=== PATIENT | female | born 1950 | race Caucasian/White ===

== ENCOUNTER 2017-03-31 14:49 | Observation (INO) ==
[2017-03-31] MEDS ORDERED: 0.9 % Sodium Chloride 1,000 ML IVC ONE (15:16)
[2017-03-31] MEDS ORDERED: Metoclopramide 10 MG/2 ML VIAL IVP ONE (15:19)
[2017-03-31] MEDS ORDERED: diazePAM 10 MG/2 ML SYRINGE IVP STA (15:25)
--- NOTE | 2017-03-31 15:29 | Emergency Department Note ---
Disposition Clinical Impression: Vertigo, Unsteady gait Headache Qualifiers: Headache type: unspecified Headache chronicity pattern: acute headache Intractability: not intractable Qualified Code(s): R51 - Headache Disposition: Admitted As Inpatient Condition: Fair Time of Disposition: 18:05 Dizziness HPI - General Chief Complaint: ED Dizziness Stated Complaint: Multiple complaints Time Seen by Provider: 03/31/17 15:17 Source: patient Limitations: no limitations Nursing Notes Reviewed: Yes Vital Signs Reviewed: Yes - History of Present Illness HPI Narrative: 66-year-old female presents to the emergency department with 3 day history of vertigo-like symptoms. Patient states that she has had this issue before, however, she has never had it this bad. Patient states that she feels as if she is short of breath as well secondary to her vertigo. Patient states that it is constant no matter whether she is standing up or sitting down. Patient is also reporting a headache on the right side of her head. Patient states that this headache is an 8 out of 10 and she does not have a history of headaches. - Related Data Previous Rx's Medication Instructions Recorded TraMADol [Ultram] 50 mg PO TID #10 tablet 03/15/15 HYDROcodone/Acet 10/325 mg [[place] 1 tab PO Q6HR PRN #20 tab 11/28/15 10-325 mg] diazePAM [Valium] 5 mg PO TID #10 tablet 11/28/15 Allergies Allergy/AdvReac Type Severity Reaction Status Date / Time Sulfa (Sulfonamide AdvReac Hives Verified 03/31/17 14:53 Antibiotics) All systems ED: reviewed and negative except as stated. Review of Systems: As Per HPI Constitutional: Denies: fever Eyes: Denies: vision change Cardiovascular: Denies: syncope Respiratory: Reports: dyspnea. Denies: cough, wheezes Gastrointestinal: Reports: nausea. Denies: abdominal pain, vomiting Neurological: Reports: headache, vertigo. Denies: numbness, paresthesias Past Medical History - Past Medical History Medical history: Reports: arthritis, GERD, hyperlipidemia, hypertension, kidney stones, thyroid disease Surgical history: Reports: cholecystectomy, hysterectomy, knee replacement, orthopedic, other, other Psychiatric history: Reports: depression CARDIOLOGY TECHNOLOGIST history: Reports: no CARDIOLOGY TECHNOLOGIST history - Social History Smoking Status: Former smoker Smokeless Tobacco Status: No Alcohol use: Reports: none Drug use: Reports: none Physical Exam CONSTITUTIONAL: Alert and oriented X3, well-nourished, well appearing, in no apparent distress HEAD: Normocephalic; atraumatic. EYES: PERRL, no scleral icterus. NOSE: The nose is normal in appearance without rhinorrhea RESP: Normal chest excursion with respiration; breath sounds clear and equal bilaterally; no wheezes, rhonchi, or rales CARD: Regular rhythm, without murmurs, rub or gallop ABD: Non-distended; non-tender, soft,without rigidity, rebound or guarding SKIN: Normal for age and race; warm and dry; no apparent lesions Lower extremities, soft calves nontender, no palpable cords. Neuro: GCS 15, no focal neurologic deficits, cranial nerves II-12 grossly intact , sensation intact throughout the upper and lower shoulders bilaterally, is strength 5 out of 5 in the upper and lower extremities, no pronator drift, negative heel to dunn. - General Limitations: no limitations General appearance: alert, in no apparent distress Course Vital Signs Temperature 98.0 F 03/31/17 14:51 Pulse Rate 110 03/31/17 14:51 Respiratory Rate 18 03/31/17 14:51 Blood Pressure 137/88 03/31/17 14:51 O2 Sat by Pulse Oximetry 96 03/31/17 14:51 Temperature 97.6 F 03/31/17 22:51 Pulse Rate 83 03/31/17 22:51 Respiratory Rate 16 03/31/17 22:51 Blood Pressure 111/73 03/31/17 22:51 O2 Sat by Pulse Oximetry 96 03/31/17 22:51 Oxygen Delivery Oxygen Delivery Room Air Dizziness - MDM Narrative Medical decision making narrative: 66-year-old female presented to the emergency department with concern for vertigo type symptoms. This sounds more central in nature as this patient does not have improvement when sitting still, and it is constant. We will obtain a CT of the head to rule out an acute hemorrhage. We will then obtain a CT angiogram of the head and neck. We are giving patient Valium for her symptoms as well as fluids. Patient is Mollie tachycardic here in the emergency department. We are obtaining a CBC, BMP, urinalysis, chest x-ray, EKG, troponin , BNP. CTA of the head and neck does not reveal visualization of the left vertebral artery. 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 They cannot exclude vascular disease of the left vertebral artery. Chest x-ray was normal. CBC was within normal limits. BMP was within normal limits as well. I spoke with Dr. Williamson, regarding admission. He states that he will accept her at this time. Chest X-Ray 03/31/17 15:16 IMPRESSION: Low lung volumes with no definite acute cardiopulmonary findings. D/ / Brenda Florez MD / Brenda Florez MD Interpreting Provider: Brenda Florez MD Angiography CT 03/31/17 15:25 IMPRESSION: Nonvisualization of the left vertebral artery. 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 However, the possibility of a superimposed vascular disease involving the left vertebral artery cannot be definitively excluded. Otherwise, no high-grade stenoses or focal occlusion involving the intracranial or cervical vasculature. No CT evidence of acute intracranial abnormality. D/ /31/2017 17:37:14 Robinson Florez MD / zeeshan Interpreting Provider: Robinson Florez MD Neck CTA 03/31/17 15:25 IMPRESSION: Nonvisualization of the left vertebral artery. 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 However, the possibility of a superimposed vascular disease involving the left vertebral artery cannot be definitively excluded. Otherwise, no high-grade stenoses or focal occlusion involving the intracranial or cervical vasculature. No CT evidence of acute intracranial abnormality. D/ /31/2017 17:37:14 Robinson Florez MD / zeeshan Interpreting Provider: Robinson Florez MD - Lab Data Result diagrams: 03/31/17 15:58 03/31/17 15:58 Lab Results 03/31/17 03/31/17 03/31/17 Range/Units 15:58 15:58 15:58 WBC 8.1 (4.3-11.1) K/mcL RBC 4.39 (3.82-4.97) M/mcL Hgb 12.3 (11.5-15.4) g/dL Hct 39.0 (35.3-44.9) % MCV 88.8 (83.0-100.0) fL MCH 28.0 (28.0-33.3) pg MCHC 31.5 L (31.6-35.5) g/dL RDW 13.7 (11.5-14.5) % Plt Count 264 (140-400) K/mcL MPV 10.5 (9.4-12.4) fL Immature Gran % 0.6 (0-4) % Seg Neutrophils % 53.9 % Lymphocytes % 32.9 % Monocytes % 8.4 % Eosinophils % 3.2 % Basophils % 1.0 % Neutrophils # 4.3 (1.6-8.9) K/mcL Lymphocytes # 2.7 (0.6-4.6) K/mcL Monocytes # 0.7 (0.0-1.3) K/mcL Eosinophils # 0.3 (0.0-0.6) K/mcL Basophils # 0.1 (0.0-0.2) K/mcL Immature Plt Fraction 4.3 (1.1-6.1) % Sodium 140 (136-145) mEq/L Potassium 4.4 (3.5-4.5) mEq/L Chloride 109 (98-109) mEq/L Carbon Dioxide 24 (19-29) mEq/L BUN 15 (7-20) mg/dL Creatinine 0.98 (0.57-1.11) mg/dL Est GFR ( Amer) > 60 (> 60) Est GFR (Non-Af Amer) 57 L (> 60) BUN/Creatinine Ratio 15 (6-26) Glucose 92 (70-99) mg/dL Calculated Osmolality 290 (280-300) Calcium 9.0 (8.6-10.8) mg/dL Troponin I 0.00 (0-0.03) ng/mL B-Natriuretic Peptide (0-100) pg/mL Urine Color (Yellow) Urine Clarity (Clear) Urine pH (5.0-8.0) pH Units Ur Specific [place] (1.010-1.025) Urine Protein (Neg-Trace) mg/dL Urine Glucose (UA) (Normal) mg/dL Urine Ketones (Negative) mg/dL Urine Blood (Negative) Urine Nitrite (Negative) Urine Bilirubin (Negative) Urine Urobilinogen (Normal) mg/dL Ur Leukocyte Esterase (Negative) Ur Culture Indicated? (NO) 03/31/17 03/31/17 Range/Units 15:58 16:35 WBC (4.3-11.1) K/mcL RBC (3.82-4.97) M/mcL Hgb (11.5-15.4) g/dL Hct (35.3-44.9) % MCV (83.0-100.0) fL MCH (28.0-33.3) pg MCHC (31.6-35.5) g/dL RDW (11.5-14.5) % Plt Count (140-400) K/mcL MPV (9.4-12.4) fL Immature Gran % (0-4) % Seg Neutrophils % % Lymphocytes % % Monocytes % % Eosinophils % % Basophils % % Neutrophils # (1.6-8.9) K/mcL Lymphocytes # (0.6-4.6) K/mcL Monocytes # (0.0-1.3) K/mcL Eosinophils # (0.0-0.6) K/mcL Basophils # (0.0-0.2) K/mcL Immature Plt Fraction (1.1-6.1) % Sodium (136-145) mEq/L Potassium (3.5-4.5) mEq/L Chloride (98-109) mEq/L Carbon Dioxide (19-29) mEq/L BUN (7-20) mg/dL Creatinine (0.57-1.11) mg/dL Est GFR ( Amer) (> 60) Est GFR (Non-Af Amer) (> 60) BUN/Creatinine Ratio (6-26) Glucose (70-99) mg/dL Calculated Osmolality (280-300) Calcium (8.6-10.8) mg/dL Troponin I (0-0.03) ng/mL B-Natriuretic Peptide 90 (0-100) pg/mL Urine Color Yellow (Yellow) Urine Clarity Clear (Clear) Urine pH 6.5 (5.0-8.0) pH Units Ur Specific [place] 1.021 (1.010-1.025) Urine Protein Negative (Neg-Trace) mg/dL Urine Glucose (UA) Normal (Normal) mg/dL Urine Ketones Negative (Negative) mg/dL Urine Blood Negative (Negative) Urine Nitrite Negative (Negative) Urine Bilirubin Negative (Negative) Urine Urobilinogen Normal (Normal) mg/dL Ur Leukocyte Esterase Negative (Negative) Ur Culture Indicated? NO (NO) - EKG Data EKG attestation: Yes I reviewed and interpreted this EKG. EKG results narrative: 15:46 Ventricular rate 149 bpm, QRS duration 102 ms, QT 348 ms, QTC 400 ms, left axis deviation. Sinus rhythm with a ventricular rate of 95 bpm. There is no evidence of any ischemic ST changes. There is no evidence of Parkinson White, hypertrophic retinopathy, Brugada syndrome. This was a cardiogram as compared to previous study performed on September 13, 2016. Attestation Statement - Attestation Attestation: I examined this patient and my medical decision-making was reviewed with the Resident Physician. I agree with the documented findings, disposition and treatment plan as described except to the extent set forth below. Dizziness, no focal neurological deficit. I would at this point received with admission for possible MRI to rule out posterior cerebral infarct. Patient had no change in neurological status during admission. Patient will be admitted for further evaluation by the hospitalist team. CT of the head and neck show no acute findings.
[2017-03-31 16:06] LABS: Basophils # 0.1 K/mcL (0.0-0.2); Eosinophils # 0.3 K/mcL (0.0-0.6); Eosinophils % 3.2 %; Hemoglobin 12.3 g/dL (11.5-15.4); Immature Granulocytes % 0.6 % (0-4); Immature Platelets 4.3 % (1.1-6.1); Lymphocytes # 2.7 K/mcL (0.6-4.6); Lymphocytes % 32.9 %; Mean Corpuscular HGB Conc 31.5 g/dL (31.6-35.5); Mean Corpuscular Volume 88.8 fL (83.0-100.0); Mean Platelet Volume 10.5 fL (9.4-12.4); Monocytes # 0.7 K/mcL (0.0-1.3); Monocytes % 8.4 %; Neutrophils # 4.3 K/mcL (1.6-8.9); Platelet Count 264 K/mcL (140-400); Red Blood Count 4.39 M/mcL (3.82-4.97); Red Cell Distribution Width 13.7 % (11.5-14.5); Segmented Neutrophils % 53.9 %
[2017-03-31 16:18] LABS: BUN/Creatinine Ratio 15 (6-26); Blood Urea Nitrogen 15 mg/dL (7-20); Carbon Dioxide 24 mEq/L (19-29); Chloride 109 mEq/L (98-109); Glucose 92 mg/dL (70-99); Osmolality,Calculated 290 (280-300); Potassium 4.4 mEq/L (3.5-4.5); Sodium 140 mEq/L (136-145); eGFR For African Americans > 60 (> 60); eGFR For Non-African Americans 57 (> 60)
[2017-03-31 16:47] LABS: Bilirubin,Urine Negative (Negative); Blood,Urine Negative (Negative); Clarity,Urine Clear (Clear); Color,Urine Yellow (Yellow); Glucose,Urine (UA) Normal (Normal); Ketones,Urine Negative (Negative); Leukocyte Esterase,Urine Negative (Negative); Nitrite,Urine Negative (Negative); PH,Urine 6.5 pH Units (5.0-8.0); Protein,Urine Negative (Neg-Trace); Specific Gravity,Urine 1.021 (1.010-1.025); Urobilinogen,Urine Normal (Normal)
[2017-03-31] MEDS ORDERED: ALPRAZolam 1 MG TABLET PO ONE (17:40)
[2017-03-31] MEDS ORDERED: Ketorolac 15 MG/ML VIAL IVP ONE (17:50)
[2017-03-31] MEDS ORDERED: Aspirin 81 MG TAB.CHEW PO ONE (17:50)
[2017-03-31] MEDS ORDERED: Naloxone 0.4 MG/ML INJ IVP PRN (20:18)
[2017-03-31] MEDS ORDERED: Ondansetron ODT 4 MG TAB.RAPDIS SL PRN (20:18)
--- NOTE | 2017-03-31 20:36 | Internal Med History&Physical ---
<Rosy Gupta - Last Filed: 03/31/17 21:39> Date of Encounter: 03/31/17 Time of Encounter: 20:32 Assessment and Plan (1) TIA (transient ischemic attack) Current visit: Yes Status: Suspected Patient has been experiencing symptoms of vertigo as well as blurred vision and stuttering as well as a headache which started this morning and has resolved. 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 We will obtain MRI. Continue with neuro checks Continue cardiac monitoring Fall precautions Aspirin and statin We will obtain lipid panel We will obtain cardiac echo Consult neurology as needed Qualifiers: Transient cerebral ischemia type: unspecified Qualified Code(s): G45.9 - Transient cerebral ischemic attack, unspecified (2) Hypertension Current visit: No Status: Chronic Presently controlled we will continue with home medications Qualifiers: Hypertension type: essential hypertension Qualified Code(s): I10 - Essential (primary) hypertension (3) Headache Current visit: Yes Status: Acute This has resolved-patient has a history of migraines-we will continue with home medications as needed Qualifiers: Headache type: unspecified Headache chronicity pattern: acute headache Intractability: not intractable Qualified Code(s): R51 - Headache (4) Vertigo Current visit: Yes Status: Acute 1 this has resolved for now-patient does have a history of vertigo- noted some nystagmus meclizine ordered Obtain MRI in a.m. Fall precautions (5) DVT prophylaxis Current visit: Yes Status: Acute Heparin subcutaneous Internal Medicine - H&P: HPI Chief complaint: vertigo Admitted From: Emergency Dept Plans for Post Hospital Care: Home History of present illness: Ms. Carrington is a 66 year old female past uncle history of arthritis GERD hypertension hyperlipidemia thyroid disease CK D stage II vertigo and migraines. Patient states that she has a past history of vertigo and migraines however the past 3 days she has been experiencing vertigo symptoms without any relief from her medications. This morning around 7 AM she began to experience vertigo symptoms as well as shortness of breath and headache 8/10 on her right side. She does admit to some speech disturbance which she states she started as well as blurred vision. She did take her prescribed medications without any relief. She denies any facial droop or extremity weakness falls or trauma to head. She presented to the ER with the above complaints, she was medicated with pain medication and symptoms had improved CT of head was obtained which did not show any acute hemorrhage. CT angiogram of head and neck per radiology does not reveal visualization of the left vertebral artery-which likely represents congenital hyperplasia given small caliber of vertebral artery foramen on the left, cannot exclude vascular disease of the left vertebral artery. Chest x-ray normal lab work was unremarkable. Patient was admitted for further workup evaluation. Presently patient is alert appropriate following simple commands no focal deficits cranial nerves II through XII are intact did note some nystagmus when gazing to right or left she is hemodynamic stable this time. Past Med Surg Social Fam HX - Past Medical History Medical history: arthritis, GERD, hyperlipidemia, hypertension, kidney stones, thyroid disease Psychiatric history: depression - Past Surgical History Surgical History: cholecystectomy, hysterectomy, knee replacement, orthopedic, other, other - Social History Smoking Status: Former smoker Smokeless Tobacco Status: No Alcohol use: none Drug use: none - Family History Mother Adopted: No Living Status: Hx Family Cardiac Disorders: Yes (heart disease) Father Adopted: No Living Status: Hx Family Cancer: Yes (colon cancer) Daughter Hx Family Neurologic Disorders: Yes (Chiari malformation) Internal Medicine - H&P: Meds TraMADol [Ultram] 50 mg PO TID #10 tablet 03/15/15 [Rx] HYDROcodone/Acet 10/325 mg [[place] 10-325 mg] 1 tab PO Q6HR PRN #20 tab 11/28/15 [Rx] diazePAM [Valium] 5 mg PO TID #10 tablet 11/28/15 [Rx] 3 Allergy/AdvReac Type Severity Reaction Status Date / Time Sulfa (Sulfonamide AdvReac Hives Verified 03/31/17 14:53 Antibiotics) All Systems PM: A 10-system review of systems was performed and is negative for pertinent findings except as documented above in the HPI. - Constitutional Constitutional: no chills, no fever(s), no night sweats - EENT Eyes: blurry vision Ears: no ear discharge, no ear pain, no tinnitus Nose, mouth and throat: no dysphagia, no nasal discharge, no neck pain, no sore throat - Cardiovascular Cardiovascular ROS IM: no chest pain, no diaphoresis, no dyspnea, no lightheadedness, no palpitations, no syncope - Respiratory Respiratory: dyspnea - Gastrointestinal Gastrointestinal: no abdominal pain, no diarrhea, no hematemesis, no hematochezia, no melena, no nausea, no vomiting - Genitourinary Genitourinary: no change in urinary stream, no dysuria, no flank pain, no hematuria - Musculoskeletal Musculoskeletal ROS IM: no numbness, no tingling - Integumentary Integumentary IM: no rash, no unusual bruising - Neurological Neurological ROS: abnormal speech, headache(s), other visual disturbances, no confusion, no convulsions, no focal weakness, no numbness, no tingling, no tremor(s) - Hematologic/Lymphatic Hematologic/Lymphatic: no easy bruising - Constitutional Vitals: Temp Pulse Resp BP Pulse Ox 97.9 F 88 14 126/93 97 03/31/17 19:51 03/31/17 19:51 03/31/17 19:51 03/31/17 19:51 03/31/17 19:51 General appearance: Present: A&O X 3, answers questions appropriately - Head Head exam: Present: atraumatic, normocephalic - Eye Eye exam: Present: nystagmus, PERRL, conjuntiva pink, sclera anicteric Pupils: Present: PERRL - Neck Neck exam general surgery: Present: supple, trachea midline. Absent: lymphadenopathy - Respiratory Respiratory exam: Present: CTAB. Absent: accessory muscle use, rales, rhonchi, wheezes - Cardiovascular Cardiovascular exam: Present: RRR, +S1, +S2. Absent: diastolic murmur, gallop, rubs, systolic murmur - GI/Abdominal GI/Abdominal exam: Present: normal bowel sounds, soft, no peritoneal signs. Absent: distended, tenderness - Extremities Exam Extremities exam: Present: warm, radial pulses palpable and symmetrical. Absent : calf tenderness, cyanotic, pedal edema - Neurological Exam Neurological exam: Present: CN II-XII intact, oriented X3, no focal deficits. Absent: pronater drift, facial droop, speech deficit - Expanded Neurological Exam Patient oriented to: Present: person, place, time Cerebellar function: finger to nose: Normal, heel to dunn: Normal, Romberg: Normal Neuro motor strength exam: LUE: 5, RUE: 5, LLE: 5, RLE: 5 Coma Scale Eye Opening: Spontaneous Coma Scale Motor Response: Obeys Commands Coma Scale Verbal Response: Oriented Coma Scale Total: 15 - Skin Skin exam: Present: dry, intact Internal Med - H&P Results - Labs CBC & Chem 7: 03/31/17 15:58 03/31/17 15:58 - EKG Data EKG shows normal: sinus rhythm - EKG Data Prior EKG available for review: yes When compared to previous EKG: there is no significant change - Diagnostic Studies Other Images Additional comments: Chest X-Ray 03/31/17 15:16 IMPRESSION: Low lung volumes with no definite acute cardiopulmonary findings. D/ / Brenda Florez MD / Brenda Florez MD Interpreting Provider: Brenda Florez MD Angiography CT 03/31/17 15:25 IMPRESSION: 1. Nonvisualization of the left vertebral artery. 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 However, the possibility of superimposed vascular disease involving the left vertebral artery cannot be definitively excluded. 2. Otherwise, no high-grade stenoses or focal occlusion involving the intracranial or cervical vasculature. 3. No CT evidence of acute intracranial abnormality. D/ : / 03/31/2017 17:37:14 Robinson Florez MD / zeeshan Interpreting Provider: Robinson Florez MD Neck CTA 03/31/17 15:25 IMPRESSION: 1. Nonvisualization of the left vertebral artery. 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 However, the possibility of superimposed vascular disease involving the left vertebral artery cannot be definitively excluded. 2. Otherwise, no high-grade stenoses or focal occlusion involving the intracranial or cervical vasculature. 3. No CT evidence of acute intracranial abnormality. D/ /31/2017 17:37:14 Robinson Florez MD / zeeshan Interpreting Provider: Robinson Florez MD <Kd Carver - Last Filed: 03/31/17 23:03> Date of Encounter: 03/31/17 Internal Medicine - H&P: HPI History of present illness: Ms. Carrington is a 66 year old female All Systems PM: A 10-system review of systems was performed and is negative for pertinent findings except as documented above in the HPI. - Constitutional Vitals: Temp Pulse Resp BP Pulse Ox 97.6 F 83 16 111/73 96 03/31/17 22:51 03/31/17 22:51 03/31/17 22:51 03/31/17 22:51 03/31/17 22:51 Internal Med - H&P Results - Labs CBC & Chem 7: 03/31/17 15:58 03/31/17 15:58 Labs: Cardiac Enzymes 03/31/17 Range/Units 21:46 Troponin I 0.01 (0-0.03) ng/mL - Attending Attestation I examined this patient and my medical decision-making was reviewed with the BLASTING CONTRACT MINER. I agree with the documented findings, disposition and treatment plan as described except to the extent set forth below. I have seen and examined the patient. Patient is a 66-year-old female with past medical history of arthritis, GERD, hyperlipidemia, hypertension, depression and thyroid disease. She presents to the ED with complaints of dizziness and vertigo. She has been experiencing these symptoms over the past few days. Patient also complained of some blurred vision and some speech disturbance. No weakness in her arms or legs. Initial workup in the ED is negative. CT angiogram of the head and neck does not show any high-grade stenosis or focal occlusion and no acute intracranial abnormality. MRI of the brain is pending. Echocardiogram is also pending. We will continue aspirin and Lipitor at this time. We will also continue meclizine as needed for vertigo. Patient has no other acute complaints at this time. Denies chest pain or shortness of breath or headache or palpitations. Patient has been explained about her condition and plan of care in detail. She understood and agreed. No unanswered questions. CODE STATUS full code. Heart S1-S2 positive. Lungs bilateral good entry no wheezes or crackles. Abdomen soft nontender. Extremities all pulses strong regular no edema. Neurological awake, alert, oriented 3, cranial nerves intact, no focal neurological deficits. Strength 5/5 in all 4 extremities.
[2017-03-31] MEDS: 0.9 % Sodium Chloride 1,000 ML IVC SCH (20:51)
[2017-03-31] MEDS ORDERED: *HR* Morphine 2 MG/ML SYRINGE IVP PRN (22:08)
[2017-04-01] MEDS: Acetaminophen 325 MG TABLET PO PRN ×2 (00:40→11:56)
[2017-04-01 05:06] LABS: Basophils # 0.1 K/mcL (0.0-0.2); Basophils % 1.3 %; Eosinophils # 0.3 K/mcL (0.0-0.6); Eosinophils % 3.8 %; Hematocrit 40.2 % (35.3-44.9); Hemoglobin 12.1 g/dL (11.5-15.4); Immature Granulocytes % 0.5 % (0-4); Lymphocytes # 2.6 K/mcL (0.6-4.6); Lymphocytes % 32.8 %; Mean Corpuscular HGB Conc 30.1 g/dL (31.6-35.5); Mean Corpuscular Hemoglobin 27.5 pg (28.0-33.3); Mean Corpuscular Volume 91.4 fL (83.0-100.0); Mean Platelet Volume 10.6 fL (9.4-12.4); Monocytes # 0.6 K/mcL (0.0-1.3); Monocytes % 8.1 %; Neutrophils # 4.2 K/mcL (1.6-8.9); Platelet Count 246 K/mcL (140-400); Red Cell Distribution Width 14.1 % (11.5-14.5); Segmented Neutrophils % 53.5 %
[2017-04-01 05:21] LABS: BUN/Creatinine Ratio 18 (6-26); Blood Urea Nitrogen 17 mg/dL (7-20); Calcium 9.2 mg/dL (8.6-10.8); Carbon Dioxide 28 mEq/L (19-29); Chloride 110 mEq/L (98-109); Cholesterol 203 mg/dL (< 200); Glucose 94 mg/dL (70-99); HDL Cholesterol 51 mg/dL (40-59); LDL Cholesterol,Calculated 117 mg/dL (0-99); Magnesium 2.3 mg/dL (1.6-2.6); Osmolality,Calculated 297 (280-300); Potassium 4.2 mEq/L (3.5-4.5); Sodium 143 mEq/L (136-145); Triglycerides 176 mg/dL (< 150); eGFR For African Americans > 60 (> 60); eGFR For Non-African Americans 58 (> 60)
[2017-04-01] MEDS: *HR* Heparin 5,000 UNIT/ML VIAL SQ SCH ×2 (05:35→17:44)
[2017-04-01] MEDS: Aspirin 81 MG TAB.CHEW PO SCH (09:57)
--- NOTE | 2017-04-01 11:40 | Electrocardiograph Report ---
[place] [id number] Test Date: 2017-03-31 Pat Name: Daily Carrington Department: 104 Room: 3B Gender: F International Representative: SIRENA : 1950 Requested By: William Arreguin Order Number: [id number] Reading MD: Jaxon Harmon Measurements Intervals [place] Rate: 95 P: 47 MA: 149 QRS: 0 QRSD: 102 T: 30 QT: 348 QTc: 400 Interpretive Statements SINUS RHYTHM Electronically Signed On 04-01-2017 11:38:04 EST by Jaxon Harmon
[2017-04-01] MEDS: Acetaminophen/Butalbital/CaffeineTABLET PO PRN ×2 (14:53→21:01)
--- NOTE | 2017-04-01 19:23 | Internal Med Progress Note ---
Date of Encounter: 04/01/17 Time of Encounter: 10:55 - Assessment and plan (1) Headache Current Visit: Yes Status: Acute Assessment and plan: Patient reports diffuse, global headache. Headache and vertigo for the last 3 years. She is prior history of migraines when she was in high school. As an adult she was prescribed Tylenol 3, the headaches eventually resolved. She is unsure if these headaches are the same as her migraines, but she feels somewhat that they are. She was given if you are set today for headache pain. We will continue effective. Qualifiers: Headache type: unspecified Headache chronicity pattern: acute headache Intractability: not intractable Qualified Code(s): R51 - Headache (2) Vertigo Current Visit: Yes Status: Acute Assessment and plan: Patient with prior history of vertigo. She denied today. Patient has meclizine 12.5 mg by mouth 3 times daily scheduled. Continue. (3) TIA (transient ischemic attack) Current Visit: Yes Status: Suspected Assessment and plan: Patient presented to the emergency department with symptoms of vertigo, vision changes, stuttering as well as a headache that started the morning of admission and had resolved by the time she was admitted. Vital signs are stable, patient was not hypertensive on admission. Consider TIA versus vascular cephalgia/migraine Continue aspirin and statin. Lipid panel was mildly elevated, continue statin. Continue telemetry. Consult neurology. Treat headache pain and vertigo. Angiography CT 03/31/17 15:25 IMPRESSION: 1. Nonvisualization of the left vertebral artery. 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 However, the possibility of superimposed vascular disease involving the left vertebral artery cannot be definitively excluded. 2. Otherwise, no high-grade stenoses or focal occlusion involving the intracranial or cervical vasculature. 3. No CT evidence of acute intracranial abnormality. D/ / 03/31/2017 17:37:14 Robinson Florez MD / zeeshan Interpreting Provider: Robinson Florez MD Neck CTA 03/31/17 15:25 IMPRESSION: 1. Nonvisualization of the left vertebral artery. 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 However, the possibility of superimposed vascular disease involving the left vertebral artery cannot be definitively excluded. 2. Otherwise, no high-grade stenoses or focal occlusion involving the intracranial or cervical vasculature. 3. No CT evidence of acute intracranial abnormality. D/ / 03/31/2017 17:37:14 Robinson Florez MD / zeeshan Interpreting Provider: Robinson Florez MD Echocardiogram 04/01/17 20:21 Impressions: Technically sub-optimal due to body habitus. LVEF 60%. Normal LV chamber size, wall thickness and function. Mild left ventricular diastolic dysfunction. Normal right ventricular structure and function. No evidence of PFO with agitated saline contrast. No evidence of pulmonary hypertension. No obvious significant valvular dysfunction. Left Ventricular Wall Motion: Rest Echo Findings All wall segments showed normal motion. Brain MRI 04/01/17 20:30 IMPRESSION: 1. No acute intracranial abnormality. No acute infarct. 2. Minimal chronic microvascular ischemic change. D/ / Gilberto Garcia MD / Gilberto Garcia MD Interpreting Provider: Gilberto Garcia MD Qualifiers: Transient cerebral ischemia type: unspecified Qualified Code(s): G45.9 - Transient cerebral ischemic attack, unspecified (4) Hypertension Current Visit: Yes Status: Chronic Assessment and plan: Well controlled. Continue home medications. Qualifiers: Hypertension type: essential hypertension Qualified Code(s): I10 - Essential (primary) hypertension (5) DVT prophylaxis Current Visit: Yes Status: Acute Assessment and plan: Heparin subcutaneous. - Time Spent With Patient less than 15 minutes - Subjective Interval history: Pt was seen and assessed at 1055. Male viscera bedside. Both are very pleasant , patient was alert and oriented. She reports headache and vertigo for 3 years. Prior history of migraines when she was in high school and states that this current headache and symptoms might be the same as her migraines. Her primary care provider used to provide her Tylenol 3 for her migraines, and then the resolved and she did not have any more headaches for years. She reports that her headache currently is diffuse. She denies vision changes, nausea, vomiting, diarrhea, abdominal pain or dizziness. She denies photo or phonophobia. She denies any slurred speech or extremity weakness. - Constitutional Vitals: Temp Pulse Resp BP Pulse Ox 97.6 F 92 16 116/75 98 04/01/17 18:59 04/01/17 18:59 04/01/17 18:59 04/01/17 18:59 04/01/17 18:59 General appearance: Present: cooperative, A&O X 3, pleasant, no acute distress, answers questions appropriately - Head Head exam: Present: atraumatic, normal inspection, normocephalic - Eye Eye exam: Present: conjuntiva pink, sclera anicteric - Neck Neck exam general surgery: Present: supple, trachea midline. Absent: lymphadenopathy - Respiratory Respiratory exam: Present: CTAB. Absent: accessory muscle use, rales, rhonchi, wheezes - Cardiovascular Cardiovascular exam: Present: RRR, +S1, +S2. Absent: diastolic murmur, gallop, rubs, systolic murmur - GI/Abdominal GI/Abdominal exam: Present: normal bowel sounds, soft. Absent: distended, hepatomegaly, tenderness - Extremities Exam Extremities exam: Present: normal capillary refill, warm, radial pulses palpable and symmetrical. Absent: calf tenderness, cyanotic, pedal edema - Neurological Exam Neurological exam: Present: alert, oriented X3, no focal deficits, strengths equal and symetr throughout. Absent: altered, motor sensory deficit, pronater drift, facial droop, speech deficit - Skin Skin exam: Present: dry, intact, normal color, warm. Absent: rash Internal Medicine: Result - Labs CBC & Chem 7: 04/01/17 04:05 04/01/17 04:05 Labs: Short CBC 04/01/17 Range/Units 04:05 WBC 7.9 (4.3-11.1) K/mcL Hgb 12.1 (11.5-15.4) g/dL Hct 40.2 (35.3-44.9) % Plt Count 246 (140-400) K/mcL Neutrophils # 4.2 (1.6-8.9) K/mcL BMP 04/01/17 04:05 Sodium 143 Potassium 4.2 Chloride 110 H Carbon Dioxide 28 BUN 17 Creatinine 0.96 Glucose 94 Calcium 9.2 Cardiac Enzymes 03/31/17 04/01/17 Range/Units 21:46 04:05 Troponin I 0.01 0.00 (0-0.03) ng/mL - Impressions Impressions Echocardiogram 04/01/17 20:21 Impressions: Technically sub-optimal due to body habitus. LVEF 60%. Normal LV chamber size, wall thickness and function. Mild left ventricular diastolic dysfunction. Normal right ventricular structure and function. No evidence of PFO with agitated saline contrast. No evidence of pulmonary hypertension. No obvious significant valvular dysfunction. Left Ventricular Wall Motion: Rest Echo Findings All wall segments showed normal motion. Findings: Study Quality * Technically sub-optimal due to body habitus. ECG Findings * Normal sinus rhythm. Left Ventricle * LVEF 60%. * Normal LV chamber size, wall thickness and function. * Mild left ventricular diastolic dysfunction. Right Ventricle * Normal right ventricular structure and function. Left Atrium * Mildly dilated left atrium. Right Atrium * Normal right atrial size. Interatrial Septum * No evidence of PFO with agitated saline contrast. Aortic Valve * Aortic valve not well visualized. * No aortic regurgitation. * No aortic stenosis. Mitral Valve * Normal mitral valve structure and function. * No mitral stenosis. * No mitral regurgitation. Tricuspid Valve * Normal tricuspid valve structure and function. * Trace tricuspid regurgitation. * No evidence of pulmonary hypertension. Pulmonic Valve * Pulmonic valve not well visualized. Aorta * Normally sized aortic root. Pericardium * The pericardium appears normal. IVC * The IVC is not well evaluated. Pulmonary Artery * Pulmonary artery not well visualized. Brain MRI 04/01/17 20:30 IMPRESSION: 1. No acute intracranial abnormality. No acute infarct. 2. Minimal chronic microvascular ischemic change. D/ / Gilberto Garcia MD / Gilberto Garcia MD Interpreting Provider: Gilberto Garcia MD Consult Discharge Plan - Plan Referrals: Daily Vieira MD [Primary Care Provider] -
[2017-04-01] MEDS: 0.9 % Sodium Chloride 1,000 ML IVC SCH (21:09)
[2017-04-01] MEDS: *HR* OxyCODONE/APAP 7.5/325 TABLET PO PRN (23:36)
[2017-04-02] MEDS: Acetaminophen/Butalbital/CaffeineTABLET PO PRN (05:34)
[2017-04-02] MEDS: *HR* Heparin 5,000 UNIT/ML VIAL SQ SCH ×2 (05:34→17:02)
[2017-04-02] MEDS: Aspirin 81 MG TAB.CHEW PO SCH (08:29)
[2017-04-02] MEDS: *HR* OxyCODONE/APAP 7.5/325 TABLET PO PRN (08:29)
--- NOTE | 2017-04-02 13:03 | Internal Med Progress Note ---
Date of Encounter: 04/02/17 Time of Encounter: 12:59 - Assessment and plan (1) Vertigo Current Visit: Yes Status: Acute Assessment and plan: known history of vertigo. Patient reports home stressors which is possibly contributing to her symptoms. Brain MRI with nonvisualization of the left vertebral artery concerning for possible congenital hypoplasia however superimposed vascular disease could not be excluded. Cont home meclazine. Neurology consulted. Cont home ASA, and statin. (2) Headache Current Visit: Yes Status: Acute Assessment and plan: known hx migraines. Brain MRI negative. Neurologically intact. Headache resolved with Fioricet and Percocet. Stop Percocet empty source at this time. Trial migraine cocktail. Qualifiers: Headache type: unspecified Headache chronicity pattern: acute headache Intractability: not intractable Qualified Code(s): R51 - Headache - Subjective Interval history: Seen and examined at bedside. Patient is new to me, information obtained from chart review and patient report. Patient reports history of vertigo and headaches for over 3 years. Has seen neurology in the past and received Botox/ nerve block for headaches. Symptoms are not new and wax and wane. Patient also reports increased home stressors which she thinks could be contributing to symptoms. Says she feels better overall but would like one more night to get her "gears together". She has no complaints on my exam - Constitutional Vitals: Temp Pulse Resp BP Pulse Ox 98.0 F 85 16 151/77 96 04/02/17 11:12 04/02/17 11:12 04/02/17 11:12 04/02/17 11:12 04/02/17 11:12 General appearance: Present: cooperative, A&O X 3, pleasant, no acute distress, answers questions appropriately - Head Head exam: Present: atraumatic, normocephalic - Eye Eye exam: Present: PERRL, conjuntiva pink, sclera anicteric Pupils: Present: PERRL - Neck Neck exam general surgery: Present: supple, trachea midline. Absent: lymphadenopathy - Respiratory Respiratory exam: Present: CTAB. Absent: accessory muscle use, rales, rhonchi, wheezes - Cardiovascular Cardiovascular exam: Present: RRR, +S1, +S2. Absent: diastolic murmur, gallop, rubs, systolic murmur - GI/Abdominal GI/Abdominal exam: Present: normal bowel sounds, soft, no peritoneal signs. Absent: distended, tenderness - Extremities Exam Extremities exam: Present: warm, radial pulses palpable and symmetrical. Absent : calf tenderness, cyanotic, pedal edema - Neurological Exam Neurological exam: Present: CN II-XII intact, oriented X3, no focal deficits. Absent: pronater drift, facial droop, speech deficit - Skin Skin exam: Present: dry, intact Internal Medicine: Result - Labs CBC & Chem 7: 04/01/17 04:05 04/01/17 04:05 Consult Discharge Plan - Plan Referrals: Daily Vieira MD [Primary Care Provider] -
[2017-04-02] MEDS ORDERED: Metoclopramide 10 MG/2 ML VIAL IVP PRN (13:45)
[2017-04-02] MEDS: Ketorolac 30 MG/ML VIAL IVP PRN (14:24)
--- NOTE | 2017-04-02 17:12 | Neurology - Consult Note ---
Date of Encounter: 04/02/17 Time of Encounter: 17:06 Assessment and Plan (1) Vertiginous migraine Current Visit: Yes Status: Acute I believe this patient has indeed experienced episodes of vertiginous migraine. She does ask to describe vertigo associated with her migraine-type headaches. It is not unusual for this syndrome to be provoked by under stress as with any migraine. She has had MRI scan of the brain which is negative for any other type of organic pathology. CTA of the brain is unchanged. At this juncture she is comfortable in the headache and vertigo have resolved. You may discharge her at your discretion. I will reevaluate her at your request. History of Present Illness HPI: Ms. Carrington is a 66 year old female who is being seen for neurologic consultation at the request of the hospitalist regarding headaches with associated vertigo. This patient is known to me however has been lost to follow-up for a few years now. I treated her previously for migrainous type headaches. She presented to [facility] [place] complaining of a global headache which she described as aching. The pain however she rated it 10/10. She also experienced vertigo at the time. She did describe a spinning/moving sensation. She did experience nausea associated with vertigo but did not vomit. Frequently this syndrome is provoked by undue stress. She was very stressed recently due to the responsibility of preparing Thanksgiving dinner. She denies diplopia denies facial weakness denies difficulty swallowing. Apparently she did not have dysarthric speech. MRI scan of the brain was completed and was negative. CTA of the brain revealed no change in comparison to the previous CTA which revealed vertebral artery hypoplasia. She now feels as though she is back to her normal baseline. Past Med Surg Social Fam HX - Past Medical History Medical history: arthritis, GERD, hyperlipidemia, hypertension, kidney stones, thyroid disease Psychiatric history: depression - Past Surgical History Surgical History: cholecystectomy, hysterectomy, knee replacement, orthopedic, other, other - Social History Smoking Status: Former smoker Smokeless Tobacco Status: No Alcohol use: none Drug use: none - Family History Mother Adopted: No Living Status: Hx Family Cardiac Disorders: Yes (heart disease) Father Adopted: No Living Status: Hx Family Cancer: Yes (colon cancer) Daughter Hx Family Neurologic Disorders: Yes (Chiari malformation) Medications and Allergies Albuterol Sulfate [Proair Hfa] 2 puff IH Q4H PRN 04/01/17 [History] BuPROPion XL (24 HR) [Wellbutrin XL] 300 mg PO DAILY 04/01/17 [History] Cyclobenzaprine [Flexeril] 10 mg PO TID 04/01/17 [History] Fluticasone Propionate Nasal [Flonase] 2 spr NS DAILY 04/01/17 [History] Ondansetron [Zofran] 8 mg PO Q8HR PRN 04/01/17 [History] Topiramate [Topamax] 50 mg PO BID 04/01/17 [History] Venlafaxine XR (24 HR) [Effexor XR] 225 mg PO DAILY 04/01/17 [History] 3 Allergy/AdvReac Type Severity Reaction Status Date / Time Sulfa (Sulfonamide AdvReac Hives Verified 03/31/17 14:53 Antibiotics) All Systems: A 10-system review of systems was performed and is negative for pertinent findings except as documented above in the HPI. Review of Systems: 10 point review of systems is consistent with a history of present illness and otherwise negative. Physical Examination - Vital Signs Vital Signs: Initial Vital Signs Temp Pulse Resp BP Pulse Ox 98.0 F 110 18 137/88 96 03/31/17 14:51 03/31/17 14:51 03/31/17 14:51 03/31/17 14:51 03/31/17 14:51 - Neurologic Detailed motor examination: full strength in all major muscle groups Motor examination - right side: 5/5: deltoids, biceps, triceps, wrist flexion, wrist extension, outreach consultant, hip flexors, tibialis Anterior, quadriceps, toe extension (EHL), plantarflexion Motor examination - left side: 5/5: deltoids, biceps, triceps, wrist flexion, wrist extension, hip flexors, outreach consultant, quadriceps, tibialis Anterior, toe extension (EHL), plantarflexion Detailed sensory examination: other (Decreased sensation distally of the lower extremities.) Mental Status Examination: awake, alert, oriented to person, oriented to place, oriented to time, follows commands appropriately, answers questions appropriately, no agnosia, no aphasia, no aproxia Cranial nerve examination: PERRL, EOMI, visual emmanuel intact, corneal reflexes brisk symmetrically, sensory to face intact, mastication intact, no facial asymmetry is present, no dysarthria, hearing is intact symmetrically, soft palate elevates bilaterally upon phonation, gag reflex intact, flexes SCM and trapezius muscles symmetrically with full power, tongue protrudes midline, no atrophy or facial fasiculations present Cerebellar examination: no dysmetria, performs finger to nose and heel to dunn symmetrically without ataxia, no gait ataxia, no truncal ataxia, no difficulty with rapid alternating movements Results - Laboratory Findings CBC and BMP: 04/01/17 04:05 04/01/17 04:05 Abnormal lab findings: Abnormal lab results MCH 27.5 pg (28.0-33.3) L 04/01/17 04:05 MCHC 30.1 g/dL (31.6-35.5) L 04/01/17 04:05 Chloride 110 mEq/L (98-109) H 04/01/17 04:05 Est GFR (Non-Af Amer) 58 (> 60) L 04/01/17 04:05 Triglycerides 176 mg/dL (< 150) H 04/01/17 04:05 Cholesterol 203 mg/dL (< 200) H 04/01/17 04:05 LDL Cholesterol, Calc 117 mg/dL (0-99) H 04/01/17 04:05 VLDL Cholesterol, Calc 35 mg/dL (< 31) H 04/01/17 04:05 Consult Discharge Plan - Plan Referrals: Daily Vieira MD [Primary Care Provider] -
[2017-04-03] MEDS: Ketorolac 30 MG/ML VIAL IVP PRN (04:20)
[2017-04-03] MEDS: *HR* Heparin 5,000 UNIT/ML VIAL SQ SCH (05:57)
[2017-04-03 07:51] VITALS: BP 144/88
[2017-04-03] MEDS ORDERED: SUMAtriptan succinate 50 MG TABLET PO ONE (07:51)
[2017-04-03] MEDS: Aspirin 81 MG TAB.CHEW PO SCH (08:24)
--- NOTE | 2017-04-03 08:24 | Discharge Summary ---
Date of Encounter: 04/03/17 Time of Encounter: 08:16 - Discharge Diagnosis (1) Vertiginous migraine Priority: Primary Status: Acute Comments: known hx migraines. Presented with headache, blurred vision and stuttering. Head CT non-acute. 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 Brain MRI negative. Evaluated by Neurology who suspected vertiginous migraine which can be proved/exacerbated with stress which was consistent with patient's presentation (patient reported increased home stressors). Remained neurologically intact. Headache improved with Imitrex. Discharge home with PRN imitrex. Recommend follow-up with PCP within one week (2) Hyperlipidemia Priority: Primary Status: Acute Comments: LDL 117; statin initiated Qualifiers: Hyperlipidemia type: pure hypercholesterolemia Qualified Code(s): E78.00 - Pure hypercholesterolemia, unspecified; E78.0 - Pure hypercholesterolemia (3) Neuropathy Priority: Primary Status: Acute Comments: per hx. Cont home gabapentin (4) Depression Priority: Primary Status: Acute Comments: per hx. Suspect depression increase in stress contributing to migraine. Continue home medication regimen. Recommend follow-up with PCP within 1-2 weeks. Qualifiers: Depression Type: major depressive disorder Major depression recurrence: recurrent Active/Remission status: currently active Major depression episode severity: moderate Qualified Code(s): F33.1 - Major depressive disorder, recurrent, moderate - Discharge Medications Prescriptions: Atorvastatin [Lipitor] 20 mg PO HS #30 tablet SUMAtriptan succinate [Imitrex] 50 mg PO DAILY PRN #14 tablet PRN Reason: Headache Home Medications: Albuterol Sulfate [Proair Hfa] 2 puff IH Q4H PRN 04/01/17 [History] BuPROPion XL (24 HR) [Wellbutrin Xl] 300 mg PO DAILY 04/01/17 [History] Cyclobenzaprine [Flexeril] 10 mg PO TID 04/01/17 [History] Fluticasone Propionate Nasal [Flonase] 2 spr NS DAILY 04/01/17 [History] Ondansetron [Zofran] 8 mg PO Q8HR PRN 04/01/17 [History] Topiramate [Topamax] 50 mg PO BID 04/01/17 [History] Venlafaxine XR (24 HR) [Effexor XR] 225 mg PO DAILY 04/01/17 [History] Atorvastatin [Lipitor] 20 mg PO HS #30 tablet 04/03/17 [Rx] SUMAtriptan succinate [Imitrex] 50 mg PO DAILY PRN #14 tablet 04/03/17 [Rx] Allergies/Adverse Reactions: 3 Allergy/AdvReac Type Severity Reaction Status Date / Time Sulfa (Sulfonamide AdvReac Hives Verified 03/31/17 14:53 Antibiotics) Procedures/tests Complete & Pending: Procedures Performed prior 72 hours Category Date Time Status MR head/brain wo con [MR] Routine MRI 04/01/17 20:30 Completed EV echocardiogram Routine Y 04/01/17 20:21 Completed Date of admission: 03/31/17 18:15 Primary care physician: Daily Rivera Consults: 03/31/17 20:21 Consult to Occupational Therapy [CONS] Routine Comment: Evaluate, develop and implement POC Reason for Consult: vertigo Consult to Physical Therapy [CONS] Routine Comment: Evaluate, develop and implement POC Reason for Consult: vertigo 04/01/17 19:28 Consult to Neurology [CONS] Routine Consulting Provider: [facility] Reason for Consult: Headache, vertigo, slurred speech prior to arrival. All symptoms resolved. History of migraines in high school. Admitted for TIA. Time Notified: 19:30 Call Completed: Yes Discharging clinician: Naya Lugo Anticipated date of discharge: 04/03/17 - Patient Status Disposition: Home, Self-Care Condition: Good Functional capacity at discharge: independent ambulation Overall status at discharge: patient is back to baseline - Discharge Instructions Instructions: Migraine Headache (DC), Sumatriptan (By mouth), Depression (DC), Stress (DC) Follow Up With: Daily Vieira MD [Primary Care Provider] - - Diet and Activity Diet: low fat, low cholesterol Interval History: Seen and examined at bedside. Patient said she had uneventful night until around 4:00 this morning when she had another headache. Received tramadol with relief. Overall states she feels better and would like to go home today. Patient states she agrees with neurology and suspects headache was brought on by increased stress at home. She is agreeable to try Imitrex at discharge with follow-up with PCP. No vision changes, numbness or weakness. No slurred speech or diplopia. Denies chest pain or shortness of breath. Hospital course: See assessment and plan for hospital course - Time Spent with Patient Total time spent providing and/or coordinating discharge services: - Constitutional Vitals: Temp Pulse Resp BP Pulse Ox 97.8 F 107 17 144/88 96 04/03/17 07:50 04/03/17 07:50 04/03/17 07:50 04/03/17 07:50 04/03/17 07:50 General appearance: Present: cooperative, A&O X 3, pleasant, no acute distress, answers questions appropriately - Head Head exam: Present: atraumatic, normocephalic - Eye Eye exam: Present: PERRL, conjuntiva pink, sclera anicteric Pupils: Present: PERRL - Neck Neck exam general surgery: Present: supple, trachea midline. Absent: lymphadenopathy - Respiratory Respiratory exam: Present: CTAB. Absent: accessory muscle use, rales, rhonchi, wheezes - Cardiovascular Cardiovascular exam: Present: RRR, +S1, +S2. Absent: diastolic murmur, gallop, rubs, systolic murmur - GI/Abdominal GI/Abdominal exam: Present: normal bowel sounds, soft, no peritoneal signs. Absent: distended, tenderness - Extremities Exam Extremities exam: Present: warm, radial pulses palpable and symmetrical. Absent : calf tenderness, cyanotic, pedal edema - Neurological Exam Neurological exam: Present: CN II-XII intact, oriented X3, no focal deficits. Absent: pronater drift, facial droop, speech deficit - Skin Skin exam: Present: dry, intact
== END 2017-04-03 11:30 | disposition home or self-care (01) ==
LOC: 3BNU 14:49 → EMEROO 14:49 → 3BNU 18:45
PROVIDERS: ADMIT Internal Medicine; ATTEND Registered Nurse